=== PATIENT | female | born 1980 | race Hispanic/Latino ===

== ENCOUNTER 2021-02-03 10:30 | Emergency (ER) | payer BC ==
[~2021-02-03] VITALS: Ht 154.9 cm; Wt 90.7 kg
== END 2021-02-03 12:08 | disposition home or self-care (01) ==
LOC: FSED 11:10
DX: R50.9 Fever, unspecified (principal); J06.9 Acute upper respiratory infection, unspecified; B34.9 Viral infection, unspecified; R19.7 Diarrhea, unspecified
CPT/HCPCS: 83518; 87400; 99283